=== PATIENT | male | born 1970 | race African-American/Black ===

== ENCOUNTER → 2016-08-26 | Outpatient (CLI) | payer OTHER ==
[~2016-08-26] MED LIST: ACET325T96 PO; ATOR-24 PO; DIPH50TA10 PO; POLY335019 PO; RANI300T2 PO
[2016-08-26 11:53] LABS: BASO % 0.1 %; BASO ABS # 0.01 K/uL (0-0.2); EOS % 1.7 %; HEMATOCRIT 50.6 % (42-52); IG% 0.1 %; LYMPH % 17.9 %; LYMPH ABS # 1.38 K/uL (1.2-3.4); MEAN CORPUSCULAR HEMOGLOBIN 32.2 pg (25-34); MEAN PLATELET VOLUME 11.1 fL (7.4-10.4); NEUT % 74.2 %; PLATELET COUNT 202 K/uL (130-400); RED BLOOD COUNT 5.62 M/uL (4.7-6.1); WHITE BLOOD COUNT 7.71 K/uL (4.8-10.8)
[2016-08-26 12:01] LABS: ALT/SGPT 33 U/L (12-78); BLOOD UREA NITROGEN 13 mg/dl (7-18); BUN/CREATININE RATIO 10.7 (10-20); CARBON DIOXIDE 26 mmol/L (21-32); CHLORIDE 102 mmol/L (98-107); GLUCOSE 80 mg/dl (70-99); POTASSIUM 4.4 mmol/L (3.5-5.1); SODIUM 140 mmol/L (136-145)
[2016-08-26 12:07] LABS: ALB/GLOB RATIO 1.3 (0.9-2); ALKALINE PHOSPHATASE 86 U/L (45-117); AST/SGOT 30 U/L (15-37)
[2016-08-26 12:18] LABS: COMPLETE YES; MEAN CORPUSCULAR HGB CONC 35.8 g/dl (32-36)
== END ==
LOC: C.LABSPEC 11:18
DX: T73.0XXA Starvation, initial encounter (principal); X58.XXXA Exposure to other specified factors, initial encounter